=== PATIENT | female | born 1995 | race African-American/Black ===

== ENCOUNTER 2025-03-22 09:59 | Inpatient (IN) | payer OTHER ==
[2025-03-21 13:39] LABS: Hematocrit 31.4 % (34.9-44.5); Hemoglobin 10.1 g/dL (12.0-15.5); Platelet Count 218 10x3/uL (150-450)
[2025-03-21 14:14] LABS: Syphilis Antibody Index 0.11 S/CO (<1.00 Non-Reactive)
[2025-03-21 14:16] LABS: HIV (1/2) Antibody/Antigen Non-Reactive (NonReactive); HIV 1/2 INDEX 0.15 S/CO (<1.00); Hep B Surf Ag Non-Reactive S/CO (NonReactive)
[2025-03-22] MEDS ORDERED: Bicitra 30 ML UDCUP PO PRN (11:12)
[2025-03-22] MEDS ORDERED: Tranexamic Acid 1,000 MG/10 ML VIAL IVP PRN (11:12)
[2025-03-22] MEDS ORDERED: Diphenoxylate HCl/Atropine Tablet PO PRN (11:12)
[2025-03-22] MEDS ORDERED: Carboprost 250 MCG/ML AMP IM PRN (11:12)
[2025-03-22] MEDS ORDERED: Methylergonovine 0.2 MG/ML VIAL IM PRN (11:12)
[2025-03-22] MEDS ORDERED: Oxytocin 30 units/NS 500 ML 500 ML IV SCH (11:12)
[2025-03-22] MEDS ORDERED: Ondansetron PF 4 MG/2 ML Vial IVP PRN ×2 (11:12→16:05)
[2025-03-22] MEDS ORDERED: hydrALAZINE 20 MG/ML VIAL SLOW IVP PRN ×2 (11:12→16:05)
[2025-03-22 11:14] VITALS: BMI 33.5
[2025-03-22] MEDS: Famotidine/PF 20 mg/2ml Vial SLOW IVP PRN (11:57)
[2025-03-22] MEDS ORDERED: Bisacodyl 10 MG SUPP PR PRN (16:05)
[2025-03-22] MEDS: Phenylephrine 40 MG/NS 250 ML 250 ML ONE (16:32)
[2025-03-22] MEDS: Dexamethasone 10 MG/ML VIAL ONE (16:33)
[2025-03-22] MEDS: Ondansetron PF 4 MG/2 ML Vial ONE (16:34)
[2025-03-22] MEDS: Oxytocin 10 UNITS/ML VIAL ONE (16:34)
[2025-03-22] MEDS: Ketorolac Tromethamine 30 MG (1 mL) VIAL ONE (16:34)
[2025-03-22] MEDS: diphenhydrAMINE 50 MG/ML VIAL IVP PRN (17:48)
[2025-03-22] MEDS: Ketorolac Tromethamine 30 MG (1 mL) VIAL IVP SCH (19:33)
[2025-03-22] MEDS: Erythromycin Base 0.5% Oint 1 GM TUBE ONE (19:36)
[2025-03-22] MEDS: Ferrous Sulfate 325 MG TAB PO SCH (19:37)
[2025-03-22] MEDS ORDERED: HYDROcodone/Acetaminophen 5/325 mg Tablet PO PRN (23:59)
[2025-03-22] MEDS ORDERED: Meperidine HCl/PF 25 MG (1 mL) VIAL IM PRN (23:59)
[2025-03-23] MEDS: Simethicone Chewable 80 MG TAB PO PRN (01:11)
[2025-03-23] MEDS: HYDROcodone/Acetaminophen 5/325 mg Tablet PO PRN (04:35)
[2025-03-23 05:44] LABS: Hematocrit 25.5 % (34.9-44.5); Hemoglobin 8.3 g/dL (12.0-15.5); Mean Corpuscular Hemoglobin 27.3 pg (27.0-33.0); Mean Corpuscular Volume 83.9 fL (81.6-98.3); Platelet Count 201 10x3/uL (150-450); Red Blood Cell (RBC) Count 3.04 10x6/uL (3.90-5.03); White Blood Cell (WBC) Count 16.84 10x3/uL (3.5-10.5)
[2025-03-23] MEDS: diphenhydrAMINE 25 MG CAP PO SCH (09:12)
[2025-03-23] MEDS: Ibuprofen 800 MG TAB PO SCH (14:03)
[2025-03-23] MEDS: Pantoprazole 40 MG DR.TAB PO SCH (15:28)
[2025-03-24] MEDS: Pantoprazole 40 MG DR.TAB PO SCH (08:44)
[2025-03-24] MEDS: Boostrix 0.5 ML (Tdap) VIAL (>/=7 yrs of age) IM ONE (09:09)
[2025-03-24] MEDS: Hepatitis B Vaccine 10 MCG/0.5 ML SYR ONE (09:09)
[2025-03-25 12:44] VITALS: BP 116/63; TEMP 98.1
== END 2025-03-25 16:20 | disposition home or self-care (01) | DRG 788 ==
LOC: CSHLD 09:59 → CSHPP 15:46
PROVIDERS: ADMIT Family Medicine; ATTEND Family Medicine
PROC: 10D00Z1 Extraction of Products of Conception, Low, Open Approach (ICD-10-PCS; principal; 2025-03-22)
DX: O36.5930 Maternal care for other known or suspected poor fetal growth, third trimester, not applicable or unspecified (principal); O34.211 Maternal care for low transverse scar from previous cesarean delivery; Z3A.37 37 weeks gestation of pregnancy; Z37.0 Single live birth; Z79.899 Other long term (current) drug therapy; Z79.82 Long term (current) use of aspirin
CPT/HCPCS: 36415; 51702; 85014; 85018; 85027; 85049; 85461; 86780; 86850; 86870; 86900; 86901; 87340; 87389; 90384; 96372; C1889; J1100; J1200; J1885; J2274; J2405; J2590; J3490